=== PATIENT | female | born 1950 | race Caucasian/White ===

== ENCOUNTER → 2023-10-19 16:51 | Outpatient (REF) | payer BC, SELFPAY | LOC: HWWDC 16:51 | PROVIDERS: ATTENDING PHYSICIAN Nurse Practitioner | DX: Z12.31 Encounter for screening mammogram for malignant neoplasm of breast (principal) | CPT/HCPCS: 77063; 77067 ==

== ENCOUNTER → 2023-12-22 07:32 | Outpatient (REF) | payer BC, SELFPAY | LOC: WDC 07:32 | PROVIDERS: ATTENDING PHYSICIAN Nurse Practitioner | DX: R92.30 Dense breasts, unspecified (principal); R92.2 Inconclusive mammogram | CPT/HCPCS: 76641 ==

== ENCOUNTER 2024-08-06 19:18 | Emergency (ER) | payer BC, SELFPAY ==
[2024-08-06 19:22] VITALS: BP 157/68
--- NOTE | 2024-08-06 20:09 | ED.MUSCINJ ---
HPI-Injury
General
Chief Complaint: Musculo-Skeletal Complaint
Source: patient
Exam Limitations: none
Time Seen by Provider: 08/06/24 20:01
History of Present Illness-Injury
Is this injury a work related problem?: No
Is pt an associate of [facility]?: No
Initial Injury comments:
This is a 73 year old female that comes in with c/o left knee pain. State that she was out for dinner and they were coming down the steps and she heard this loud pop in the left knee. States that she was unable to put weight on the knee. States that
she did not fall. Denies hitting her head or any LOC. Patient state that she had a Cortisone shot in the left knee recently and has an appointment with Dr. Paz on . Denies any fever, chills, nausea, vomiting, diarrhea, headache,
dizziness.
Past History
Past History
ED Past Medical History: HTN, Psychiatric (depression) and Other (osteoporosis, Vertigo, B12 def, )
ED Past Surgical History: Gynecological ( Total Hysterectomy )
Social History
Tobacco: Non-smoker
Alcohol: None
Personal:
Living: alone
Employment: Employed
Review of Systems
Review of Systems
All Other Systems: ROS reviewed and negative except as documented in HPI and ROS
Constitutional: Reports no symptoms; Denies fever or chills
EENT: Reports no symptoms
Respiratory: Reports no symptoms
Cardiac: Reports no symptoms
ABD/GI: Reports no symptoms
: Reports no symptoms
Musculoskeletal: Reports joint pain (Left knee pain)
Skin: Reports no symptoms
Neurological: Reports no symptoms; Denies dizzy or headache
Psychiatric: Reports no symptoms
Musculoskeletal Injury Exam
Musculoskeletal Injury Exam
Left Distal Knee:
Pain with Movement?: None
Tender to palpation?: Mild
Soft tissue swelling?: None
External deformity and angulation?: None
Joint effusion?: None
Contusion?: None
Hematoma-local bleeding into tissue?: None
Strain- Sprain- Tear (Connective tissue injury)?: None
Crepitus with movement?: No
Joint instability?: No
Malalignment/deformity?: No
Range of motion: Full
Distal skin color and temperature: normal-warm & good color
Capillary Refill: normal
Normal distal neurovascular exam?: Yes
Phy Exam
General Physical Exam
General Presentation: well appearing and no apparent distress
General age: appears stated age
General Skin: warm and dry
General Habitus: elderly
General Mental: alert
General Hydration: appears well hydrated
Eye Exam
Eye Exam: EOMI
Musculoskeletal Exam
Musculoskeletal Exam: full ROM (negative for discomfort with flexion. tender with palpation distal knee, Negative for any bruising or swelling)
Skin Exam
Skin Exam: normal color, warm/dry, no rash and no petechia
Psychiatric Exam
Psychiatric Exam: normal mood/affect
Injury Course
Orders/Labs/Results
Orders:
Orders
08/06/24 19:25
CR Knee - Left 4 Or More View* Urgent
Comment:
Reason For Exam: injury
MDM/Problems Addressed
Differential Diagnosis Includes:
Osteoarthritis
MDM/Problems Addressed:
This is a 73 year old female that comes in with c/o left knee pain. State that she was coming down the steps and she heart a loud pop and then was unable to put weight on the left knee.
Will get X-ray. Explained to patient that the X-ray is negative for any fractures but shows her osteoarthritis. Patient has an appointment with Dr. Paz on . Will place patient in rafia wrap and see if she can bare weight. If unable will
use Knee immobilizer.
Chronic conditions affecting care:
Osteoarthritis knee
Acute Exacerbation and/or Progression of Chronic Illness:
osteoarthritis knee
*Radiology
Radiology exam reviewed: radiology read reviewed (Left knee- No acute fracture or dislocation. Minimal tricompartmental osteoarthritis. No significant joint effusion. Soft tissues are grossly unremarkable. )
*Pulse Oximetry
Patient hypoxic: no
*EKG
Interpreted by ED Provider?: NA
Rate: EKG- N/A
*Kiln Labourer Interpretation
Rate: Kiln Labourer- N/A
*Critical Care Note
Total Time (30-74mins, 75-104mins- exclusive of procedures): Not Applicable
ED Attending Note
-
Portions of this chart may have been created with voice recognition software.� Occasional wrong word or��sound alike� substitutions may have occurred due to the inherent limitations of voice recognition software.
Discharge Plan
Departure
Patient Disposition: Home (Routine Discharge)
Date of Disposition: 08/06/24
Time of Disposition: 20:18
Patient with high blood pressure during this ER visit?: Yes
Condition: Good
Covid-19: Not Applicable
Discharge Problem:
Acute pain of left knee
Instructions: Knee Immobilizer (DC), Knee Pain (DC), BLOOD PRESSURE
Prescriptions:
No Action
multivitamin 1 EACH tablet
1 ea PO DAILY
escitalopram oxalate 5 MG tablet
5 mg PO DAILY
cholecalciferol (vitamin D3) 2,000 UNITS tablet
2,000 unit PO DAILY
L.acidoph,paracasei,B.animalis 1 EACH capsule
1 ea PO DAILY
Referrals:
Larry Paz MD [Active] - 08/09/24
Activity Restrictions/Additional Instructions:
As discussed, there are no fracture noted on X-ray. You do have osteoarthritis. Please use the knee immobilizer when you are up walking around. Rest, elevated and use Ice when sitting around. Follow up with Dr. Paz on as scheduled. He
may wish to get an MRI. You may use Tylenol 1000mg every 6 hours for pain and alternate with Ibuprofen 600mg every 6 hours with food for pain. IF YOU HAVE ANY OTHER CONCERNS PLEASE RETURN TO THE EMERGENCY ROOM.
Interventions
Interventions:
*General Assessment Last Done: 08/06/24 19:22
Discharge Date and Time
Print Language: [email or web address]
[2024-08-06] MEDS: MOTRIN 600 MG PO (20:40)
[2024-08-06 20:44] VITALS: BP 129/61
== END 2024-08-06 20:47 | disposition home or self-care (01) ==
LOC: EMR 19:18
PROVIDERS: EMERGENCY PHYSICIAN Emergency Medicine; FAMILY PHYSICIAN Internal Medicine
DX: M25.562 Pain in left knee (principal); I10 Essential (primary) hypertension; M17.12 Unilateral primary osteoarthritis, left knee; M81.0 Age-related osteoporosis without current pathological fracture
CPT/HCPCS: 29505; 99283; 73564

== ENCOUNTER → 2024-11-01 17:09 | Outpatient (REF) | payer BC, SELFPAY | LOC: WDC 17:09 | PROVIDERS: ATTENDING PHYSICIAN Internal Medicine | DX: Z12.31 Encounter for screening mammogram for malignant neoplasm of breast (principal) | CPT/HCPCS: 77063; 77067 ==

== ENCOUNTER → 2024-12-10 09:47 | Outpatient (REF) | payer BC, SELFPAY | LOC: HWRAD 09:47 | PROVIDERS: ATTENDING PHYSICIAN Internal Medicine | DX: M81.0 Age-related osteoporosis without current pathological fracture (principal) | CPT/HCPCS: 77080 ==